=== PATIENT | female | born 1930 | race Caucasian/White ===

== ENCOUNTER → 2016-12-03 | Outpatient (CLI) | payer OTHER ==
[~2016-12-03] MED LIST: BUPROBAN150 MG PO; COQ-10100 MG PO; DIOVAN 80 MG TA80 M1 PO; FOLIC ACID1 MG PO; IBUPROFEN 600600 M1 PO; KLOR-CON 1010 MEQ PO; LEVOTHYROXIN0.137 M1 PO; LEXAPRO 10 MG T10 M1 PO; LOVASA PO; MELATONIN3 MG PO; METFORMIN HCL500 MG PO; METOLAZONE 2.52.5 M1 PO; PROTONIX 20 MG20 M1 PO; QUINU10 PD PO; VALIUM5 MG PO; VITAMIN B-12500 MCG PO; VITAMIN D400 UNIT PO; XANAX 0.5 MG0.5 MG PO
[2016-12-03 10:44] VITALS: BP 151/45; BP 158/52
[2016-12-03 14:05] LABS: HEMATOCRIT 29.9 % (37.0-47.0); HEMOGLOBIN 9.9 gm/dL (12.0-15.0); MCH 31.7 pg (26.0-34.0); MCHC 33.1 g/dL (28.0-37.0); MCV 95.8 fL (80.0-100.0); RBC 3.12 mil/uL (4.20-5.00); RDW 19.2 % (10.5-14.5); WBC 6.5 thou/uL (4.0-11.0)
== END ==
LOC: OPONC 06:22
PROVIDERS: Internal Medicine
DX: D64.9 Anemia, unspecified (principal)
CPT/HCPCS: 91030